=== PATIENT | female | born 1965 | race Caucasian/White ===

== ENCOUNTER → 2019-03-17 | Outpatient (CLI) | payer MEDICARE, MEDICAID ==
[~2019-03-17] MED LIST: GADOBUTROL 7.5 MMOL/7.5 ML PFS ONE
== END | disposition home or self-care (01) ==
LOC: CFH 12:53
PROVIDERS: ATTEND Family Medicine
DX: J34.1 Cyst and mucocele of nose and nasal sinus (principal); M12.88 Other specific arthropathies, not elsewhere classified, other specified site; M50.30 Other cervical disc degeneration, unspecified cervical region
CPT/HCPCS: 70553; 72156; A9585; 77067

== ENCOUNTER → 2019-03-22 | Outpatient (CLI) | payer MEDICARE, MEDICAID | END | disposition home or self-care (01) | LOC: RAD 10:12 | PROVIDERS: ATTEND Family Medicine | DX: M79.604 Pain in right leg (principal); R60.0 Localized edema ==

== ENCOUNTER 2019-07-07 14:47 | Outpatient (CLI) | payer MEDICARE, MEDICAID | END 2019-07-07 23:59 | disposition home or self-care (01) | LOC: RAD 14:47 | PROVIDERS: ATTEND Registered Nurse | DX: M47.813 Spondylosis without myelopathy or radiculopathy, cervicothoracic region (principal); M43.12 Spondylolisthesis, cervical region | CPT/HCPCS: 72040 ==

== ENCOUNTER 2019-10-20 08:56 | Outpatient (CLI) | payer MEDICARE, MEDICAID | END 2019-10-20 23:59 | disposition home or self-care (01) | LOC: CVU 08:56 → CFH 23:59 | PROVIDERS: ATTEND Family Medicine | DX: N85.4 Malposition of uterus (principal); I83.893 Varicose veins of bilateral lower extremities with other complications; N92.1 Excessive and frequent menstruation with irregular cycle; R93.89 Abnormal findings on diagnostic imaging of other specified body structures | CPT/HCPCS: 76830; 93970 ==

== ENCOUNTER 2019-11-13 13:00 | Outpatient (CLI) | payer MEDICARE, MEDICAID | END 2019-11-13 23:59 | disposition home or self-care (01) | LOC: RAD 13:00 | PROVIDERS: ATTEND Nurse Practitioner Critical Care Medicine | DX: M48.02 Spinal stenosis, cervical region (principal); M43.22 Fusion of spine, cervical region | CPT/HCPCS: 72040 ==

== ENCOUNTER 2019-12-04 09:54 | Outpatient (CLI) | payer MEDICARE, MEDICAID ==
[2019-12-04] MEDS ORDERED: HYDR-3240 PO (10:24)
[2019-12-04] MEDS ORDERED: PREG75CA PO (10:24)
[2019-12-04] MEDS ORDERED: TIZA4CAP PO (10:24)
[2019-12-04] MEDS ORDERED: LEVO25TA4 PO (10:24)
[2019-12-04] MEDS ORDERED: PANT40TA5 PO (10:24)
[2019-12-04] MEDS ORDERED: ACET325T14 PO (10:24)
[2019-12-04] MEDS ORDERED: FURO20TA3 PO (10:38)
== END 2019-12-04 23:59 | disposition home or self-care (01) ==
LOC: STAR 09:54
PROVIDERS: ATTEND Obstetrics & Gynecology Female Pelvic Medicine and Reconstructive Surgery
DX: Z02.9 Encounter for administrative examinations, unspecified (principal)

== ENCOUNTER 2019-12-11 06:49 | Day surgery (SDC) | payer MEDICARE, MEDICAID ==
[~2019-12-11] VITALS: Ht 160 cm; Wt 75.5 kg
[~2019-12-11 06:49] MED LIST changes: +ACET325T14 PO; +FURO20TA3 PO; -GADOBUTROL 7.5 MMOL/7.5 ML PFS ONE; +HYDR-3240 PO; +LEVO25TA4 PO; +PANT40TA5 PO; +PREG75CA PO; +TIZA4CAP PO
[2019-12-11] MEDS ORDERED: BUPIVACAINE/PF-EPI 0.25% 1:200K ONE (06:59)
[2019-12-11] MEDS ORDERED: NEOMY/POLYMYXIN B GU IRR. 1 ML ONE (06:59)
[2019-12-11] MEDS ORDERED: LACTATED RINGERS 1,000 ML IV SCH (07:24)
[2019-12-11] MEDS ORDERED: ACETAMINOPHEN 500 MG TABLET PO ONE (07:30)
[2019-12-11] MEDS ORDERED: GABAPENTIN 300 MG CAPSULE PO ONE (07:30)
[2019-12-11] MEDS ORDERED: OXYcodone 5 MG/5 ML ORAL.SOL UDC PO PRN (08:30)
[2019-12-11] MEDS ORDERED: hydrALAzine 20 MG/ML, 1ML IV PRN (08:30)
[2019-12-11] MEDS ORDERED: ONDANSETRON 2MG/ML, 2ML IV PRN (08:30)
[2019-12-11] MEDS ORDERED: LORazepam 2 MG/ML, 1ML IVPush PRN (08:30)
[2019-12-11] MEDS ORDERED: MEPERIDINE/PF 25MG/ML,1ML IVPush PRN (08:30)
[2019-12-11] MEDS ORDERED: LABETALOL 5MG/ML, 20ML IV PRN (08:30)
[2019-12-11] MEDS ORDERED: GLYCOPYRROLATE 0.2MG/1ML, 5ML ONE (10:02)
[2019-12-11] MEDS ORDERED: NEOSTIGMINE 1 MG/ML, 10ML ONE (10:02)
[2019-12-11] MEDS ORDERED: CEFAZOLIN 1,000 MG ONE ×3 (10:25)
[2019-12-11] MEDS ORDERED: PROPOFOL 10 MG/ML, 20ML ONE (10:25)
[2019-12-11] MEDS ORDERED: FENTANYL PF 100 MCG/2ML ONE ×2 (10:25→11:43)
[2019-12-11] MEDS ORDERED: LIDOCAINE-MPF 2% ,5ML ONE (10:25)
[2019-12-11] MEDS ORDERED: ROCURONIUM 10MG/ML,5ML ONE (10:25)
[2019-12-11] MEDS ORDERED: MIDAZOLAM 1 MG/ML, 2ML ONE (10:25)
[2019-12-11] MEDS ORDERED: ONDANSETRON 2MG/ML, 2ML ONE (10:26)
[2019-12-11] MEDS ORDERED: DEXAMETHASONE 4 MG/ML, 1ML ONE ×2 (10:26)
[2019-12-11] MEDS ORDERED: OXYcodone 5 MG/5 ML ORAL.SOL UDC ONE (11:44)
[2019-12-11] MEDS: FENTANYL PF 100 MCG/2ML IV PRN ×2 (11:45→12:00)
[2019-12-11] MEDS ORDERED: LORazepam 2 MG/ML, 1ML ONE (12:03)
[2019-12-11] MEDS ORDERED: HYDROmorphone 1 MG/ML, 1ML INJ ONE (12:03)
[2019-12-11] MEDS: HYDROmorphone 2 MG/ML, 1ML IVPush PRN ×2 (12:08→12:23)
[2019-12-11] MEDS ORDERED: KETOROLAC 30 MG/1 ML ONE (12:59)
[2019-12-11] MEDS ORDERED: HYDROcodone/APAP 5/325 TABLET ONE (14:44)
[2019-12-11] MEDS ORDERED: HYDROcodone/APAP 5/325 TABLET PO ONE (15:00)
== END 2019-12-11 18:20 | disposition home or self-care (01) ==
LOC: OUT 06:49
PROVIDERS: ATTEND Obstetrics & Gynecology Female Pelvic Medicine and Reconstructive Surgery
DX: N95.0 Postmenopausal bleeding (principal); N94.10 Unspecified dyspareunia; N81.89 Other female genital prolapse; N39.46 Mixed incontinence; N87.9 Dysplasia of cervix uteri, unspecified; N81.11 Cystocele, midline; N81.6 Rectocele; N81.5 Vaginal enterocele; D27.0 Benign neoplasm of right ovary; R10.2 Pelvic and perineal pain; K21.9 Gastro-esophageal reflux disease without esophagitis; E03.9 Hypothyroidism, unspecified; M19.90 Unspecified osteoarthritis, unspecified site; F17.210 Nicotine dependence, cigarettes, uncomplicated; Z79.890 Hormone replacement therapy; Z79.899 Other long term (current) drug therapy; Z88.6 Allergy status to analgesic agent; Z98.84 Bariatric surgery status; Z98.890 Other specified postprocedural states
CPT/HCPCS: 36415; 57265; 57282; 57288; 58552; 84703; 88307; C1771; J0690; J1100; J1170; J2060; J2250; J2405; J2704; J2710; J3010; J7120